=== PATIENT | male | born 1950 | race Caucasian/White ===

== ENCOUNTER 2017-11-14 16:52 | Emergency (ER) | payer OTHER ==
[~2017-11-14] VITALS: Ht 180.3 cm; Wt 82.7 kg
[~2017-11-14 16:52] MED LIST: AVAPRO75 MG PO; LIPITOR80 MG PO; NEXIUM20 MG PO; WELLBUTRIN75 MG PO
[2017-11-14 17:31] LABS: HEMATOCRIT 49.5 % (38.0-50.0); HEMOGLOBIN 17.3 G/DL (12.5-16.6); MCH 32.8 PG (29.0-34.0); MCHC 34.9 G/DL (30.0-36.0); MCV 93.9 FL (86-99); RBC DIS.WIDTH-CV 12.5 % (11.8-14.6); RBC DIS.WIDTH-SD 43.2 % (39-53); RED BLOOD COUNT 5.27 M/uL (4.00-5.50); WHITE BLOOD COUNT 8.2 K/uL (4.1-10.2)
[2017-11-14 17:39] LABS: CHLORIDE 105 mEq/L (99-109); POTASSIUM 4.8 mEq/L (3.7-5.4); SODIUM 141 mEq/L (136-147)
[2017-11-14 17:41] LABS: GLUCOSE 91 mg/dL (70-99)
[2017-11-14 17:45] LABS: CREATININE 1.1 mg/dL (0.6-1.3); GFR ESTIMATE (CALCULATED) > 59 mL/min/ (58.99-99999); UREA NITROGEN (BUN) 12 mg/dL (9-23)
[2017-11-14 18:25] LABS: PLAT.SUFFICIENCY ADEQUATE; PLATELET COUNT 186 K/uL (156-360)
[2017-11-14 19:17] LABS: ALBUMIN 4.2 g/dL (3.2-4.8)
[2017-11-14 19:20] LABS: TOTAL PROTEIN 7.2 g/dL (6.4-8.3)
[2017-11-14 19:22] LABS: TOTAL BILIRUBIN 0.7 mg/dL (0.0-1.0)
[2017-11-14 19:23] LABS: ALKALINE PHOSPHATASE 77 IU/L (3-129)
[2017-11-14 19:25] LABS: AST (GOT) 20 IU/L (2-34); DIRECT BILIRUBIN 0.2 mg/dL (0.0-0.3)
[2017-11-14 19:26] LABS: ALT (GPT) 13 IU/L (3-49)
[2017-11-14 19:27] LABS: LIPASE 118 U/L (1.0-51.0)
[2017-11-14 19:34] LABS: TROP-I INTERPRETATION NEGATIVE; TROPONIN-I < 0.01 ng/mL (0.0-0.30)
[2017-11-14 22:02] LABS: TROP-I INTERPRETATION NEGATIVE; TROPONIN-I < 0.01 ng/mL (0.0-0.30)
[2017-11-14 22:29] VITALS: BP 157/86
== END 2017-11-14 22:30 | disposition home or self-care (01) ==
LOC: EME 16:52
PROVIDERS: Emergency Medicine
DX: R10.13 Epigastric pain (principal); K21.9 Gastro-esophageal reflux disease without esophagitis; I10 Essential (primary) hypertension; Z85.49 Personal history of malignant neoplasm of other male genital organs; E78.5 Hyperlipidemia, unspecified; F17.200 Nicotine dependence, unspecified, uncomplicated
CPT/HCPCS: 71045; 74177; 80048; 80076; 83690; 84484; 85027; 93005; 99281; 99285; J7030